=== PATIENT | female | born 1975 | race Two or more races ===

== ENCOUNTER 2019-09-06 14:46 | Emergency (ER) | payer SELFPAY ==
[~2019-09-06] VITALS: Ht 165.1 cm; Wt 63.5 kg
[2019-09-06 15:00] VITALS: BP 128/74
[2019-09-06] MEDS ORDERED: Sodium Chloride 550 ML IV SCH (15:00)
--- NOTE | 2019-09-06 15:01 | NUR ---
ED Nurse Note: ambulated in to ED from home due to increased SOB with N/V. Per pt, she was tested positive last and her is currently in the hospital for COVID. Pt able to answer questions in full sentences without any distress. Breathing normal/even/unlabored. skin warm/dry/intact. NAD noted.
[2019-09-06] MEDS ORDERED: ACETAMINOPHEN500 M5 ORAL (15:02)
--- NOTE | 2019-09-06 15:18 | NUR ---
ED Nurse Note: EKG was verbally canceled by Dr. Miranda.
--- NOTE | 2019-09-06 15:18 | Emergency Room Report ---
History of Present Illness General Chief Complaint: Dyspnea/Respdistress Source: Patient Present Illness HPI Patient presents with shortness of breath. She tested COVID-19 positive on . She has been ill since Saturday or Saturday with shortness of breath fevers headache and cough. She took Tylenol yesterday. She also feels nauseated and feels an emptiness in her stomach with some discomfort. Today the shortness of breath became more severe. In triage she was found to have O2 sat of 90%. The patient's been feeling dizzy when she stands up and feels somewhat dehydrated at this time. The pain in her head at this time is 3/10. Throbbing. It was improved by Tylenol yesterday. She feels the headache is vague is related to nasal congestion. She denies vomiting. She has had loose stools yellow in color no blood. The patient is menstruating at this time. She does not believe she is . She denies any dysuria. No chills, abdominal pain, joint pain, rashes, depression, visual changes. 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 COVID-19 Screening: Positive COVID-19 Patient History Past Medical History: see triage record Social History: Denies: smoking, alcohol use, drug use Social History Narrative Reviewed Nursing Documentation: PMH: Agreed; PSxH: Agreed Nursing Documentation-PMH Past Medical History: No History, Except For Review of Systems All Other Systems: negative except mentioned in HPI Physical Exam Vital Signs Date Time Temp Pulse Resp B/P (MAP) Pulse Ox O2 Delivery O2 Flow Rate FiO2 09/06/19 14:55 98.4 81 20 128/74 (92) 100 Room Air Sp02 EP Interpretation: reviewed, abnormal - Triage pulse oximetry was 90% which is interpreted by me as low. This is not documented in the initial vital sign General Appearance: well appearing, no apparent distress, GCS 15 Head: normocephalic Eyes: bilateral eye normal inspection, bilateral eye PERRL, bilateral eye EOMI ENT: moist mucus membranes Neck: full range of motion, supple, no meningismus Respiratory: lungs clear, normal breath sounds Cardiovascular #1: regular rate, rhythm Cardiovascular #2: 2+ radial (L) Gastrointestinal: normal inspection, normal bowel sounds, non tender, no mass, non-distended Musculoskeletal: back normal, normal range of motion, gait/station normal Neurologic: alert, motor strength/tone normal, chief specialist leed III-XII nml as tested, oriented x3, sensory intact, cerebellar normal, speech normal Psychiatric: mood/affect normal Skin: no rash, warm/dry Medical Decision Making Diagnostic Impression: Primary Impression: COVID-19 virus infection Additional Impressions: Dyspnea Qualified Codes: R06.09 - Other forms of dyspnea Headache Qualified Codes: G44.89 - Other headache syndrome Nausea ER Course Patient with known COVID-19 positive status presents with dyspnea and initial oxygen saturation of 90%. Differential includes hypoxia due to COVID-19, pulmonary embolus, pneumonia, bronchitis amongst others. Evaluation with EKG, chest x-ray and labs. Patient also clinically dehydrated and IV hydration will be administered. In addition the patient will receive Zofran Tylenol and Pepcid. On bring the patient back O2 saturation on room air is 99%. Laboratory still in progress along with chest x-ray however EKG is canceled. Chest x-ray clear. Labs with low white count. Wrist markers for COVID-19 low. Lactic acid normal. Patient improved with treatment but still complaining of headache and nausea. Zofran repeated. Discussed findings with patient. No medical emergency at this time. Patient stable for outpatient observation and treatment. Laboratory Tests Test 09/06/19 14:30 09/06/19 17:30 White Blood Count 3.9 K/UL (4.8-10.8) L Red Blood Count 4.39 M/UL (4.20-5.40) Hemoglobin 13.6 G/DL (12.0-16.0) Hematocrit 38.8 % (37.0-47.0) Mean Corpuscular Volume 88 FL (80-99) Mean Corpuscular Hemoglobin 30.9 PG (27.0-31.0) Mean Corpuscular Hemoglobin Concent 35.0 G/DL (32.0-36.0) Red Cell Distribution Width 11.5 % (11.6-14.8) L Platelet Count 165 K/UL (150-450) Mean Platelet Volume 7.4 FL (6.5-10.1) Neutrophils (%) (Auto) 55.9 % (45.0-75.0) Lymphocytes (%) (Auto) 34.5 % (20.0-45.0) Monocytes (%) (Auto) 8.7 % (1.0-10.0) Eosinophils (%) (Auto) 0.4 % (0.0-3.0) Basophils (%) (Auto) 0.5 % (0.0-2.0) Prothrombin Time 11.0 SEC (9.30-11.50) Prothrombin Time INR 1.0 (0.9-1.1) Activated Partial Thromboplast Time 34 SEC (23-33) H Sodium Level 141 MMOL/L (136-145) Potassium Level 3.8 MMOL/L (3.5-5.1) Chloride Level 105 MMOL/L (98-107) Carbon Dioxide Level 28 MMOL/L (21-32) Anion Gap 8 mmol/L (5-15) Blood Urea Nitrogen 5 mg/dL (7-18) L Creatinine 0.7 MG/DL (0.55-1.30) Estimated Glomerular Filtration Rate > 60 mL/min (>60) Glucose Level 123 MG/DL (74-106) H Lactic Acid Level 1.30 mmol/L (0.4-2.0) Calcium Level 9.7 MG/DL (8.5-10.1) Ferritin 122 NG/ML (8-388) Total Bilirubin 0.2 MG/DL (0.2-1.0) Aspartate Amino Transferase (AST) 17 U/L (15-37) Alanine Aminotransferase (ALT) 21 U/L (12-78) Alkaline Phosphatase 65 U/L (46-116) Lactate Dehydrogenase 154 U/L (81-234) Total Creatine Kinase 29 U/L (26-308) Troponin I 0.000 ng/mL (0.000-0.056) C-Reactive Protein, Quantitative 1.8 mg/dL (0.00-0.90) H Pro-B-Type Natriuretic Peptide 21 pg/mL (0-125) Total Protein 7.9 G/DL (6.4-8.2) Albumin 3.7 G/DL (3.4-5.0) Globulin 4.2 g/dL Albumin/Globulin Ratio 0.9 (1.0-2.7) L Human Chorionic Gonadotropin, Qual Negative (NEGATIVE) Urine Color Pale yellow Urine Appearance Clear Urine pH 6.5 (4.5-8.0) Urine Specific [place] 1.005 (1.005-1.035) Urine Protein Negative (NEGATIVE) Urine Glucose (UA) Negative (NEGATIVE) Urine Ketones Negative (NEGATIVE) Urine Blood 1+ (NEGATIVE) H Urine Nitrite Negative (NEGATIVE) Urine Bilirubin Negative (NEGATIVE) Urine Urobilinogen Normal MG/DL (0.0-1.0) Urine Leukocyte Esterase Negative (NEGATIVE) Urine RBC 5-10 /HPF (0 - 2) H Urine WBC 0-2 /HPF (0 - 2) Urine Squamous Epithelial Cells Moderate /LPF (NONE/OCC) H Urine Bacteria Few /HPF (NONE) EKG Diagnostic Results Rate: normal Rhythm: NSR ST Segments: no acute changes Rhythm Strip Diag. Results EP Interpretation: yes Rhythm: NSR, no PVC's, no ectopy Chest X-Ray Diagnostic Results Chest X-Ray Diagnostic Results : Chest X-Ray Ordered: Yes # of Views/Limited/Complete: 1 View Indication: Shortness of Breath EP Interpretation: Yes Interpretation: no consolidation, no effusion, no pneumothorax Impression: No acute disease Electronically Signed by: Electronically signed by Frank Bose MD Last Vital Signs Date Time Temp Pulse Resp B/P (MAP) Pulse Ox O2 Delivery O2 Flow Rate FiO2 09/06/19 18:26 98.4 71 18 101/61 100 Room Air Status: improved Disposition: HOME, SELF-CARE Condition: Improved Scripts Chlorpheniramine Maleate (CHLOR-TRIMETON) 4 Mg Tablet 4 MG PO Q6HR PRN for congestion, #10 TAB Prov: Frank Bose MD 09/06/19 Famotidine* (Pepcid 20mg tablet*) 20 Mg Tablet 20 MG ORAL DAILY, #15 TAB 0 Refills Prov: Frank Bose MD 09/06/19 Ondansetron Odt* (ZOFRAN ODT*) 4 Mg Tab.rapdis 4 MG BC EVERY 8 HOURS, #10 TAB 0 Refills Prov: Frank Bose MD 09/06/19 Acetaminophen (Tylenol) 325 Mg Tablet 650 MG ORAL Q6H PRN for Prn Pain/Headache/Temp > 101, #20 TAB 0 Refills Prov: Frank Bose MD 09/06/19 Referrals: NOT CHOSEN IPA/,REFERRING (PCP) Frank Bose MD September 06, 2019 15:18
[2019-09-06 15:25] LABS: BASOPHILS % (AUTO) 0.5 % (0.0-2.0); EOSINOPHILS % (AUTO) 0.4 % (0.0-3.0); HEMATOCRIT 38.8 % (37.0-47.0); HEMOGLOBIN 13.6 G/DL (12.0-16.0); LYMPHOCYTES % (AUTO) 34.5 % (20.0-45.0); MEAN CORPUSCULAR VOLUME 88 FL (80-99); MONOCYTES % (AUTO) 8.7 % (1.0-10.0); NEUTROPHILS % (AUTO) 55.9 % (45.0-75.0); PLATELET COUNT 165 K/UL (150-450); RED BLOOD COUNT 4.39 M/UL (4.20-5.40); RED CELL DISTRIBUTION WIDTH 11.5 % (11.6-14.8); WHITE BLOOD COUNT 3.9 K/UL (4.8-10.8)
[2019-09-06 15:34] LABS: ANION GAP 8 mmol/L (5-15); BLOOD UREA NITROGEN 5 mg/dL (7-18); CALCIUM 9.7 MG/DL (8.5-10.1); CARBON DIOXIDE 28 MMOL/L (21-32); CHLORIDE 105 MMOL/L (98-107); CREATININE 0.7 MG/DL (0.55-1.30); POTASSIUM 3.8 MMOL/L (3.5-5.1); SODIUM 141 MMOL/L (136-145)
[2019-09-06 15:51] LABS: ALANINE AMINOTRANSFERASE 21 U/L (12-78); ALBUMIN 3.7 G/DL (3.4-5.0); ALBUMIN/GLOBULIN RATIO 0.9 (1.0-2.7); ALKALINE PHOSPHATASE 65 U/L (46-116); ASPARTATE AMINO TRANSFERASE 17 U/L (15-37); BILIRUBIN,TOTAL 0.2 MG/DL (0.2-1.0); CREATINE KINASE 29 U/L (26-308); FERRITIN 122 NG/ML (8-388); LACTATE DEHYDROGENASE 154 U/L (81-234)
--- NOTE | 2019-09-06 16:20 | NUR ---
ED Nurse Note: Per ERMD, pt is already positive and will hold COVID test for now.
[2019-09-06 16:31] VITALS: BP 109/62
--- NOTE | 2019-09-06 16:44 | Diagnostic Imaging Report ---
EXAM: XR Chest, 1 View CLINICAL HISTORY: DYSPNEA TECHNIQUE: Frontal view of the chest. COMPARISON: No relevant prior studies available. FINDINGS: Lungs: The lateral pulmonary hyperinflation. No consolidation. Pleural space: No significant abnormality. No pneumothorax. Heart: No significant abnormality. No cardiomegaly. Mediastinum: No significant abnormality. Bones/joints: No acute osseous abnormality. IMPRESSION: No acute cardiopulmonary process.
[2019-09-06] MEDS ORDERED: TYLENOL325 MG ORAL (17:37)
[2019-09-06] MEDS ORDERED: ONDANSETRON ODT4 MG BC (17:37)
[2019-09-06] MEDS ORDERED: FAMOTIDINE20 MG ORAL (17:37)
[2019-09-06 17:43] LABS: APPEARANCE,URINE CLEAR; BILIRUBIN, URINE NEGATIVE (NEGATIVE); COLOR,URINE PALE YELLOW; GLUCOSE, URINE (UA) NEGATIVE (NEGATIVE); KETONES,URINE NEGATIVE (NEGATIVE); LEUKOCYTE ESTERASE ,URINE NEGATIVE (NEGATIVE); NITRITE,URINE NEGATIVE (NEGATIVE); PH,URINE 6.5 (4.5-8.0); PROTEIN,URINE NEGATIVE (NEGATIVE); UROBILINOGEN,URINE NORMAL MG/DL (0.0-1.0)
[2019-09-06 18:14] VITALS: BP 101/61
[2019-09-06] MEDS ORDERED: CHLOR-TRIMETON4 MG PO (18:17)
[2019-09-06 18:26] VITALS: BP 101/61
--- NOTE | 2019-09-06 18:27 | NUR ---
ED Nurse Note: Pt cleared by health care Provider for discharge. DC instructions/prescription was given and explained to pt and verbalized understanding of teachings. All medical deviecs such as ID band and IV removed. Pt is AAO x4, ambulatory and left with all personal belongings. NAD noted.
== END 2019-09-06 18:29 | disposition home or self-care (01) ==
LOC: EMR 15:09
DX: U07.1 COVID-19 (principal); R11.0 Nausea; G44.89 Other headache syndrome; R06.09 Other forms of dyspnea
CPT/HCPCS: 36415; 71045; 80053; 81003; 82550; 82728; 83605; 83615; 83880; 84484; 84703; 85025; 85610; 85730; 86140; 96361; 96374; 96375; 99284; J2405; S0028